=== PATIENT | male | born 1990 | race Two or more races ===

== ENCOUNTER 2024-10-07 13:10 | Emergency (ER) | payer SELFPAY ==
[2024-10-07 13:14] VITALS: BP 165/97; PULSE 115; PULSE 123; RESP 18; RESP 20; TEMP 37.3; O2SAT 97
== END 2024-10-07 13:24 | disposition home or self-care (01) ==
PROVIDERS: Emergency Provider Emergency Medicine
DX: Z53.21 Procedure and treatment not carried out due to patient leaving prior to being seen by health care provider (principal)
CPT/HCPCS: 99281

== ENCOUNTER 2024-10-08 03:54 | Emergency (ER) | payer MEDICAID, SELFPAY ==
[2024-10-08 03:56] VITALS: PULSE 127; RESP 22; O2SAT 94
--- NOTE | 2024-10-08 04:01 | PD.EDOVER ---
ED Overdose RME/HPI General Chief Complaint: Overdose Stated Complaint: OVERDOSE Time Seen by Provider: 10/08/24 04:01 Arrival date/time: 10/08/24 03:54 RME / HPI RME / HPI Narrative: This section includes all my notes and documentations, including HPI, PE, and ED course. Dewey Le MD HPI: 34-year-old male here for evaluation of overdose. Someone called 911 for no responsiveness. He was out on the streets. He was found under a bench. With 3 Narcan treatments, his mental status improved. Patient admits to fentanyl use, no other drug usage. He reports no headache or dizziness. No chest pain or shortness of breath. No other complaints. ROS: All negative except as documented in HPI. Physical Exam: General: Severely lethargic. But he opens his eyes to verbal stimulus. Localizes to pain. And with vigorous stimulus, he follows commands. Eyes: Conjunctivae and lids clear. EOMI. PERRL. ENT: No signs of trauma. Neck: Supple. No carotid bruit. No JVD. Heart: RRR. Lungs: No respiratory distress. Good air movement. No rhonchi, wheezing, rales. Abdomen: Soft and nontender. Skin: Warm and dry. Neuro: Cranial Nerves II-XII grossly intact. No peripheral motor deficits. Musculoskeletal: All major joints and bones are not tender with no limited ROM. My interpretation of the EKG is sinus rhythm with no acute ST?T changes. Blood tests remarkable for troponin 0.154. Treatment included IV fluid and oxygen and ASA and metoprolol. At 6 AM on 10/08/2024, the care of the patient was transferred to Dr Alston. Dewey Le MD Related Data Previous Rx's ?Medication ?Instructions ?Recorded furosemide 20 mg tablet (Lasix) 20 mg PO QAM #7 tabs 04/20/24 Allergies Allergy/AdvReac Type Severity Reaction Status Date / Time No Known Allergies Allergy Verified 10/08/24 04:03 Course Quality Measures none Orders Category Date Time Status EKG (ED ONLY) *Do not use* NOW Care 10/08/24 04:04 Completed Saline [Insert IV] NOW Care 10/08/24 04:02 Active Straight [In and Out Catheter] X1 Care 10/08/24 04:02 Active EKG (ED Only) Stat Exams 10/08/24 04:04 Ordered Acetaminophen Stat Lab 10/08/24 04:05 Completed Alcohol, Blood Medical Stat Lab 10/08/24 04:05 Completed CBC Stat Lab 10/08/24 04:05 Completed CMP [Comprehensive Metabolic Panel] Stat Lab 10/08/24 04:05 Completed Drug Screen,Urine Stat Lab 10/08/24 04:02 Ordered Magnesium Stat Lab 10/08/24 04:05 Completed Salicylate Stat Lab 10/08/24 04:05 Completed Troponin I Stat Lab 10/08/24 04:05 Completed VBG [Venous Blood Gas] Stat Lab 10/08/24 04:05 Completed Albuterol/Ipratr Rt Dede [Duoneb Rt Dede] Med 10/08/24 04:25 Discontinued 3 ml INH X1 ONE Aspirin Chew Med 10/08/24 04:48 Discontinued 324 mg PO X1 ONE MethylPREDNISolone.* [SoluMEDROL Inj] Med 10/08/24 04:25 Discontinued 125 mg IVP X1 ONE Metoprolol Tartrate [Lopressor] Med 10/08/24 04:48 Discontinued 12.5 mg PO X1 ONE Sodium Chloride 0.9% 1000 ml [Ns] 1,000 ml Med 10/08/24 04:03 Discontinued IV 999 mls/hr Vital Signs Vital signs: Vital Signs Temperature 98.3 F 10/08/24 04:03 Pulse Rate 93 10/08/24 04:03 Respiratory Rate 16 10/08/24 04:03 Blood Pressure 128/85 H 10/08/24 04:03 Pulse Oximetry (%) 100 10/08/24 04:03 Oxygen Delivery Method Room Air 10/08/24 04:03 Overdose Patient data External records reviewed:: [facility] previous records and EMS form Clinical information provided by:: patient and EMS Social determinants that could affect healthcare access:: substance use Patient has the following chronic illnesses:: Substance abuse How is presenting disease/condition affected by chronic disease/condition?: exacerbated by Evaluation data The following diagnostics were reviewed and interpreted by me:: lab results, radiology exam(s) and EKG tracing(s) (My interpretation of the EKG: NSR (97 bpm) with no ST-T changes. Dewey Le MD) Lab and/or radiology exams considered but not ordered:: None Interpretation Summary: Overdose and elevated troponin Medications / Prescriptions Medications or Prescriptions considered but not ordered:: None Medication administrations:: Medication Administration History Discontinued Medications Albuterol/Ipratropium (Albuterol/Ipratropium (Duoneb) Rt Dede 3 Ml Nebu) 3 ml INH X1 ONE Stop: 10/08/24 04:26 Last Admin: 10/08/24 04:37 Dose: Not Given Documented By: KG Non-Admin Reason: Discontinued Aspirin (Aspirin 81 Mg Chew) 324 mg PO X1 ONE Stop: 10/08/24 04:49 Sodium Chloride (Ns) 1,000 mls @ 999 mls/hr IV .Q1H1M ONE Stop: 10/08/24 05:03 Last Admin: 10/08/24 04:18 Dose: 999 mls/hr Documented By: KG Methylprednisolone Sodium Succinate (Methylprednisolone Sod Succ 62.5 Mg/Ml 2ml Vial) 125 mg IVP X1 ONE Stop: 10/08/24 04:26 Last Admin: 10/08/24 04:37 Dose: Not Given Documented By: KG Non-Admin Reason: Discontinued Metoprolol Tartrate (Metoprolol Tartrate 25 Mg Tablet) 12.5 mg PO X1 ONE Stop: 10/08/24 04:49 IV fluid and aspirin and metoprolol Consultations Consultation(s) initiated? (list below): No Diagnosis Overdose Differential Diagnosis: cocaine intoxication, suicide attempt by multiple drug overdose, poisoning by opiate or related narcotic, drug overdose, acetaminophen overdose and accidental drug ingestion Most likely diagnosis given after review of the tests above:: Overdose and elevated troponin Admission Indicated Admission indicated?: not indicated Explain why admission is indicated or not indicated:: Complete diagnostics pending Admission Request Was there a request for admission?: No Disposition Plan Disposition Plan: other (specify) (Care of the patient was transferred to next shift physician.) Discharge Plan Prescriptions/Referrals Prescriptions/Med Rec: No Action furosemide [Lasix] 20 mg tablet 20 mg PO QAM Qty: 7 0RF Referrals: No Primary/Family,Physician [Primary Care Provider] - In 1 week Problem List Clinical Impression: Overdose, Elevated troponin Patient/Caregiver Discharge Instructions Print Language: Wolof
[2024-10-08 04:02] VITALS: BMI 36.2
[2024-10-08 04:03] VITALS: BP 128/85; PULSE 93; RESP 16; TEMP 36.8; O2SAT 100
[2024-10-08 04:13] LABS: Base Excess, Venous 1 (-3-3); O2 Saturation, Venous 78 % (96-97); PCO2, Venous 60 mmHg (36-56); PO2, Venous 45 mmHg (15-58); pH, Venous 7.29 (7.33-7.66)
[2024-10-08 04:17] LABS: Basophils # (Auto) 0.1 Thou/mm3 (0.0-0.2); Basophils % (Auto) 1 % (0-2.5); Eosinophils # (Auto) 0.5 Thou/mm3 (0.0-0.5); Eosinophils % (Auto) 7 % (0-10); Hematocrit 34.3 % (41.0-53.0); Hemoglobin 11.1 g/dL (13.5-16.0); Immature Granulocytes % (Auto) 0 % (0-0); Immature Granulocytes Auto 0.01 Thou/mm3 (0.00-0.00); Lymphocytes # (Auto) 3.3 Thou/mm3 (1.0-4.8); Lymphocytes % (Auto) 47 % (10-50); Mean Corpuscular HGB Conc 32.4 g/dl (31.0-37.0); Mean Corpuscular Hemoglobin 26.3 pg (25.0-35.0); Mean Corpuscular Volume 81 fL (80-100); Monocytes # (Auto) 0.9 Thou/mm3 (0.0-0.8); Monocytes % (Auto) 12 % (0-12); Neutrophils # (Auto) 2.4 Thou/mm3 (1.8-7.7); Neutrophils % (Auto) 34 % (37-80); Nucleated Red Blood Cell % 0 /100 WBC (0); Platelet Count 141 Thou/mm3 (140-440); RDW Standard Deviation 49.4 fL (35.1-43.9); Red Blood Count 4.22 Miln/mm3 (4.50-5.90); White Blood Count 7.1 Thou/mm3 (3.8-10.6)
[2024-10-08] MEDS: SODIUM CHLORIDE 0.9% 1000 ML 1,000 ML 999 ML IV ×2 (04:18→10:54)
[2024-10-08 04:43] LABS: Acetaminophen < 2.0 mcg/mL (10.0-20.0); Alanine Aminotransferase 26 U/L (10-49); Albumin/Globulin Ratio 1.6 (1.2-2.2); Alcohol, Blood Medical < 3.0 mg/dL (0-10.0); Alkaline Phosphatase 61 U/L (46-116); Anion Gap 10 (7-16); Aspartate Amino Transferase 26 U/L (0-34); BUN/Creatinine Ratio 20 Ratio (12-20); Bilirubin,Total 0.7 mg/dL (0.3-1.2); Blood Urea Nitrogen 16 mg/dL (9-23); Calcium 8.4 mg/dL (8.3-10.6); Calcium (Corrected) 8.4 mg/dL (8.5-10.1); Carbon Dioxide 25.4 mMol/L (20.0-31.0); Chloride 104 mMol/L (98-107); Creatinine (Component) 0.8 mg/dL (0.6-1.3); Estimated Creatinine Clearance 186.5 mL/min (>60); Globulin 2.5 gm/dL (2.3-3.5); Glucose 85 mg/dL (74-106); Osmolality,Calculated 277 (275-295); Potassium 4.4 mMol/L (3.4-5.1); Salicylate < 3.0 mg/dL; Sodium 139 mMol/L (136-145); Total Protein 6.5 gm/dL (5.7-8.2); eGFR > 60 See Note
[2024-10-08 04:46] LABS: Troponin I 0.154 ng/mL (0.0-0.045)
[2024-10-08 05:33] VITALS: BP 132/86; PULSE 86; RESP 16; O2SAT 100
[2024-10-08] MEDS: ASPIRIN 81 MG CHEW 324 MG PO (05:42)
[2024-10-08 05:43] VITALS: BP 132/86; PULSE 108
[2024-10-08] MEDS: METOPROLOL TARTRATE 25 MG TABLET 12.5 MG PO (05:43)
--- NOTE | 2024-10-08 05:58 | EDNOTE_ITS ---
Emergency Room Addendum <Osiris Reyes - Last Filed: 10/08/24 11:50> Addendum Narrative: 0600: Care assumed from Dr. Le, the previous shift emergency physician. Past medical, surgical, social and family history reviewed. Vitals and home medications reviewed. I will assume the care of the patient at this time. Please refer to the emergency department record for history and examination from initial visit.? Physical exam by me shows patient under no acute distress at this time. <Mann Alston MD - Last Filed: 10/08/24 13:46> Addendum Narrative: 0600: Care assumed from Dr. Le, the previous shift emergency physician. Past medical, surgical, social and family history reviewed. Vitals and home medications reviewed. I will assume the care of the patient at this time. Please refer to the emergency department record for history and examination from initial visit.? Physical exam by me patient is sleeping but arouses appears to be tired but arouses he is breathing fine probably have the best that he has had in a while. He states he is homeless. He admits to using drugs. Does not appear to be under the influence of fentanyl at this time. His troponin was slightly el evated earlier and we will get a repeat 3 hours after the lastone, will reassess when the patient is more alert and the second troponin comes back. Second troponin came back similar to the first still little elevated. Reevaluation shows the patient to still be quite sleepy he does arouse he is a little less slurring his words now and gives me more attention without falling asleep immediately. He does state he is hungry. Because the venous blood gas had some acidosis and the troponin is still little elevated we will get a third troponin a lactic acid and a venous blood gas reevaluate another to 3 hours and I assume what ever drugs are making him sleepy will be more worn off. Also give him another liter of fluid we are waiting. At 1100 hrs. patient is more alert his follow-up venous blood gas shows a pH to be normalized the pH is 7.45 and pCO2 is 36 lactic acid is 0.8. Third troponin is>>>>> still pending at 1108 hrs. Third troponin is unchanged also. Lactic acid is normalized as above patient alert awake eating ambulatory. business services vice president evaluated they feel he is not at risk to himself or this was recreational drug abuse related. I concur. Patient will be discharged she is advised to stop using drugs and follow-up with his doctor.
[2024-10-08 06:20] VITALS: BP 128/89; PULSE 78; RESP 18; O2SAT 96
[2024-10-08 06:46] LABS: Amphetamine/Methamp Scrn,U Positive (Negative); Barbiturate Screen,Urine Negative (Negative); Benzodiazepines Screen,Urine Negative (Negative); Benzoylecgonine Screen, Ur Negative (Negative); Fentanyl Screen,Urine Positive (Negative); Opiate Screen,Urine Negative (Negative); THC Screen,Urine Positive (Negative)
[2024-10-08 07:59] LABS: Troponin I 0.143 ng/mL (0.0-0.045)
--- NOTE | 2024-10-08 08:02 | PC.SS ---
ASW attempted contact with the patient however, the patient appears confused, continues sleeping. Patient continues pending medical clearance/sobriety at this time.
[2024-10-08 10:42] LABS: Base Excess, Venous 2 (-3-3); O2 Saturation, Venous 96 % (96-97); PCO2, Venous 36 mmHg (36-56); PO2, Venous 67 mmHg (15-58); pH, Venous 7.45 (7.33-7.66)
[2024-10-08 10:43] LABS: Lactate (Lactic Acid) 0.8 mMol/L (0.4-2.0)
[2024-10-08 11:10] LABS: Troponin I 0.136 ng/mL (0.0-0.045)
[2024-10-08 13:10] VITALS: BP 126/71; PULSE 60; RESP 15; O2SAT 98
--- NOTE | 2024-10-08 13:13 | PC.SS ---
JERED Parsons met with patient for a mental health evaluation as patient was MALA on an overdose. Patient was informed of this automotive service writer's role and reason for contact. ASW disclosed the limits of confidentiality. Patient appeared alert to self, place and situation. Patient reports he was MALA on an overdose as what he was told. Per patient he used fentanyl substance yesterday and [place] at the park called 911 which is how he got to the ED. Patient reports living at home with mother and brother however also reports being homeless recently. Patient appears to be unkempt and malodorous, however patient is able to engage in assessment and answer questions appropriately. Patient denies that the overdose was intentional and denies wanting to end his life, stating I would never to that . Patient reports being a 10+ year substance user. Choices of substances he reports using is THC, meth, opioids, and recently fentanyl. Patient informs he gets the substances in the streets. Patient's toxicology report is positive for THC, meth and fentanyl. Patient reports being unemployed. Patient reports being able to ambulate and complete ADL's. Patient informs he is not established with primary care. Patient assigned his brother Nagi ([phone]) as his emergency contact, however informs he does not want family to be contacted at this time. Currently, the patient is denying SI and HI. Patient also denying audio and visual hallucinations. Patient denies having a history with mental health or ever being on a psychiatric hold. Patient declines an appointment for mental health services at this time, however is agreeable to receive substance abuse resources and additional community resources. After clinical consultation with care nonprofit director, Mayra Stack LCSW, it was decided that the patient does not meet criteria for a 5150 and can be cleared for discharged with community resources provided.
--- NOTE | 2024-10-08 13:57 | EDNOTE_ITS ---
Emergency Room Addendum Addendum Narrative: Also I forgot to Tahir the previous addendum that this patient prior to my arrival had multiple dose of Narcan due to his overdose of fentanyl. And he has been observed for a protracted period of time in the emerged part make sure there is no rebound. And as of 1350 when he is being discharged he is ambulatory he is eating he is feeling better. Critical care time 75 minutes of observation during my shift and cannot account for how many minutes was spent by Dr. Bojorquez prior to my assuming care. The high probability of sudden, clinically significant deterioration in the patient's condition required the highest level of my preparedness to intervene urgently. The services I provided to this patient were to treat and/or prevent clinically significant deterioration. Services included the following: chart data review, reviewing nursing notes and/or old charts, documentation time, events solutions consultant collaboration regarding findings and treatment options, medication orders and management, direct patient care, vital sign assessments and ordering, interpreting and reviewing diagnostic studies and lab tests. Aggregate critical care time includes only time during which I was engaged in work directly related to the patient's care, as described above, whether at [facility] or elsewhere in the Emergency Department. It did not include time spent performing other reported procedures or the services of residents, students, nurses or physician assistants.
== END 2024-10-08 15:09 | disposition home or self-care (01) ==
PROVIDERS: Emergency Medicine; Emergency Provider Emergency Medicine
DX: T40.411A Poisoning by fentanyl or fentanyl analogs, accidental (unintentional), initial encounter (principal); R79.89 Other specified abnormal findings of blood chemistry
CPT/HCPCS: 36415; 80053; 80307; 80320; 80329; 82803; 83605; 83735; 84484; 85025; 90839; 93005; 96127; 96360; 99284; J7030; A9270; G0480

== ENCOUNTER 2025-01-02 12:57 | Emergency (ER) | payer MEDICAID, SELFPAY ==
[2025-01-02 13:14] VITALS: BP 122/73; PULSE 85; RESP 20; TEMP 37.2; O2SAT 97; BMI 27.2
--- NOTE | 2025-01-02 13:17 | XR_ITS ---
Examination: Hand, right 3 views Technique: Hand AP, oblique, lateral 3 views Date and time of exam: January 02, 2025 1322 hours INDICATIONS: Injury to the hand today with first digit pain. FINDINGS: No acute fracture No dislocation No foreign body IMPRESSION: No acute fracture
[2025-01-02] MEDS: IBUPROFEN TAB 400 MG TABLET 800 MG PO (14:58)
--- NOTE | 2025-01-02 15:46 | PD.EDHAND ---
Upper Extremity Injury RME/HPI General Chief Complaint: Hand/Wrist Problems Stated Complaint: right thumb deformed, patient denies injury Time Seen by Provider: 01/02/25 13:01 Arrival date/time: 01/02/25 12:57 34-year-old male presents to the emergency department today for complaints of deformity to the right thumb patient reports that he dislocated his right thumb this morning Limitations: no limitations Related Data Previous Rx's ?Medication ?Instructions ?Recorded furosemide 20 mg tablet (Lasix) 20 mg PO QAM #7 tabs 04/20/24 ibuprofen 800 mg tablet 800 mg PO TID PRN pain #30 tabs 01/02/25 Allergies Allergy/AdvReac Type Severity Reaction Status Date / Time No Known Allergies Allergy Verified 01/02/25 13:06 Review of Systems Review of Systems Systems Reviewed: All systems reviewed, normal except as documented Constitutional Constitutional: Reports system reviewed and no additional complaints, except as documented, Denies fever(s) and Denies headache(s) Eyes Eyes: Reports system reviewed and no additional complaints, except as documented and Denies blurry vision ENT Ears, Nose, Mouth, and Throat: Reports system reviewed and no additional complaints, except as documented, Denies headache(s), Denies nasal congestion and Denies nasal discharge Cardiovascular Cardiovascular: Reports system reviewed and no additional complaints, except as documented, Denies chest pain and Denies dyspnea Respiratory Respiratory: Reports system reviewed and no additional complaints, except as documented, Denies chest congestion, Denies cough and Denies dyspnea Gastrointestinal Gastrointestinal: Reports system reviewed and no additional complaints, except as documented and Denies abdominal pain Musculoskeletal Musculoskeletal: Reports system reviewed and no additional complaints, except as documented, Reports arthralgias, Reports deformity and Reports joint swelling Integumentary/Breasts Skin/Breast: Reports system reviewed and no additional complaints, except as documented and Denies rash Neurologic Neurologic: Reports system reviewed and no additional complaints, except as documented, Reports as per HPI and Denies headache(s) Past Medical History Past Medical History NEUROLOGIC: Negative Neurological Disorders, Cerebrovascular Accident, Transient Ischemic Attacks (TIA), Dementia, Alzheimer's Disease, Parkinson's Disease, Brain Tumor, Meningitis, Seizures, Epilepsy, Multiple Sclerosis, Cerebral Palsy, Amyotrophic Lateral Sclerosis (ALS/Destinee Gehrig's), Guillain-Loving Syndrome, Spina Bifida, Paralysis, Peripheral Neuropathy, Collier's Palsy, Subdural Hematoma, Migraine, Head Trauma, Spinal Cord Injury or Traumatic Brain Injury CARDIAC: Negative Cardiac Disorders, Myocardial Infarction, Cardiac Arrhythmia, Atrial Fibrillation, Angina, Heart Murmur, Coronary Artery Disease, Atherosclerotic Heart Disease, Peripheral Vascular Disease, Hypercholesterolemia, Aneurysm, Congestive Heart Failure, Congenital Heart Disease, Valvular Heart Disease, Rheumatic Fever, Cardiomyopathy, Edema, Pericarditis, Cellulitis, Deep Vein Thrombosis, Hypertension, Hypotension or Varicose Veins RESPIRATORY: Positive Asthma and Bronchitis; Negative Chronic Obstructive Pulmonary Disease (COPD), Emphysema, Pneumonia, Pulmonary Fibrosis, Cystic Fibrosis, Tuberculosis, Pulmonary Embolism, Pulmonary Edema or Sleep Apnea GASTROINTESTINAL: Positive Gastrointestinal Disorders and Pancreatitis; Negative Hepatitis, Cirrhosis, Celiac Disease, Gall Bladder Disease, Gastrointestinal Bleed, Esophageal Varices, Orozco's Esophagus, Colitis, Ulcerative Colitis, Diverticulitis, Diverticulosis, Ulcer, Colorectal Cancer, Irritable Bowel, Crohn's Disease, Obstructive Bowel, Hiatal Hernia, Hemorrhoids, Gastroesophageal Reflux Disease or Obesity GENITOURINARY: Negative Genitourinary Disorders, Renal Disease, Kidney Stones, Polycystic Kidney Disease, Neurogenic Bladder, Inguinal Hernia, Dialysis, Prostate Cancer or Benign Prostatic Hyperplasia REPRODUCTIVE: Negative Breast Cancer, Fibroids, Genital Herpes, Gonorrhea, Syphilis or Testicular Cancer MUSCULOSKELETAL: Positive Fractures (BROKEN FINGER); Negative Musculoskeletal Disorders, Muscular Dystrophy, Myasthenia Gravis, Marfan's Syndrome, Bone Cancer, Arthritis, Rheumatoid Arthritis, Osteoporosis, Degenerative Disk Disease, Gout, Scoliosis, Carpal Tunnel Syndrome, Fibromyalgia, Degenerative Joint Disease, Osteomyelitis or Poliovirus ENT: Positive Cataracts; Negative Glaucoma, Blind, Retinal Detachment, Macular Degeneration, Ear Infection, Deafness, Head Trauma or Eye Prosthesis ENDOCRINE: Negative Endocrine Disorders, Diabetes Mellitus Type 1, Diabetes Mellitus Type 2, Hypoglycemia, Ty[place]ham's Syndrome, [place]'s Disease, Hyperthyroidism, Hypothyroidism, Parathyroid Disease, Pituitary Disease, Systemic Lupus Erythematosus, Syndrome of Inappropriate Antidiuretic Hormone (SIADH), Adrenal Disease or Graves' Disease HEMATOLOGIC: Negative Blood Disorders, Anemia, Leukemia, Hemophilia, Thalassemia, Sickle Cell Disease or Clotting Problems PSYCHO/SOCIAL: Positive Recreational Drug Use and Behavior Problems (YOUNGER ATTEMPTED SUICIDE WITH DRUG USE); Negative Psychiatric Problems, Schizophrenia, Bipolar Disorder, Depression, Anxiety, Self-Mutilation, Attention Deficit Disorder, Attention Deficit Hyperactivity Disorder, Depression, Post Traumatic Stress Disorder or Eating Disorder OTHER HISTORY: Negative Hospitalization, Autoimmune Disease, Down Syndrome, Autism, Developmental Delay, Shingles, Falls, Blood Transfusions, Blood Transfusion Reaction, Anesthesia Reactions, Organ Transplant, Chemotherapy, Radiation Therapy, Hyperbaric Therapy, MRSA, VRSA, Vancomycin-Resistant Enterococci, Human Immunodeficiency Virus (HIV), Chicken Pox, Measles, Mumps, Rubella (Serbian Measles), Pertussis, Clostridium Difficile, Cancer, Breast Cancer, Cervical Cancer, Colorectal Cancer, Lung Cancer, Ovarian Cancer, Prostate Cancer or Testicular Cancer Family History FAMILY HISTORY: Positive Family Respiratory Disorders (ASTHMA) and Family Cancer (FATHER OF PROSTATE CANCER); Negative Family Psychiatric Problems, Family Cardiac Disorders, Family Gastrointestinal Problems, Family Surgery or Family Anesthesia Reaction Surgical History SURGICAL: Negative Cardiac Surgery, Open Heart Surgery, Coronary Artery Bypass Graft, Valve Replacement, Vascular Surgery, Coronary Stent, Cardiac Catheterization, Pacemaker, Angiogram, Auto Implanted Cardiovert Defib, Carotid Endarterectomy, Endocrine Surgery, Thyroidectomy, Ear Surgery, Tympanostomy Tube, Eye Surgery, Nose Surgery, Oral Surgery, Tonsillectomy, Adenoidectomy, Cochlear Implant, Corneal Transplant, Throat Surgery, Abdominal Surgery, Tracheostomy, Gastric Bypass Surgery, Gastrostomy, Bowel Surgery, Nephrectomy, Transurethral Resection, Joint Replacement, Amputation, Open Reduction Internal Fixation, Arthroscopy, Neurologic Surgery, Brain Shunt, Mastectomy, Lumpectomy, Hysterectomy, Tubal Ligation, Section, Vasectomy or Organ Transplant Social History SMOKING STATUS: Current every day smoker SECOND HAND EXPOSURE: Yes ED Exam General Limitations: Present no limitations General appearance: Present alert and in no apparent distress Head Head exam: Present atraumatic Eye Eye exam: Present normal appearance, PERRL and EOMI ENT ENT exam: Present normal exam, normal oropharynx and mucous membranes moist Neck Neck exam: Present normal inspection, full ROM and trachea midline Chest Chest inspection: Present normal inspection and symmetric chest wall rise Respiratory Respiratory exam: Present normal lung sounds bilaterally Cardiovascular Cardiovascular exam: Present regular rate, normal rhythm and normal heart sounds Abdominal Exam Abdominal exam: Present soft and normal bowel sounds Extremities Exam Extremities exam: Present tenderness (Deformity right thumb) and normal capillary refill Back Exam Back exam: Present normal inspection and full ROM Neurological Exam Neurological exam: Present alert, oriented X3 and CN II-XII intact Psychiatric Psychiatric exam: Present normal affect and normal mood Skin Skin exam: Present warm, dry, intact and normal color Course Quality Measures none Orders Category Date Time Status XR hand comp RT min 3V Stat Exams 01/02/25 13:17 Completed Ibuprofen Tab [Motrin Tab] Med 01/02/25 13:17 Discontinued 800 mg PO X1 ONE Vital Signs Vital signs: Vital Signs Temperature 98.9 F 01/02/25 13:14 Pulse Rate 85 01/02/25 13:14 Respiratory Rate 20 01/02/25 13:14 Blood Pressure 122/73 01/02/25 13:14 Pulse Oximetry (%) 97 01/02/25 13:14 Oxygen Delivery Method Room Air 01/02/25 13:14 O2 saturation 97% room air within normal limits Procedures -ED Orthopedic Joint Reduction Joint #1: Time Out Performed: Yes Side: Right Joint Reduction Location: finger Shoulder Technique Used (if applicable): traction/counter-traction and scapula manipulation Post-reduction neuro exam: intact Post-reduction vascular: intact Post Reduction X-Ray Obtained: Yes Post Reduction X-Ray Results: reduced Splint Applied: Yes Patient Tolerated Procedure: well Extremity Injury MDM Narrative MDM Narrative:: 34-year-old male presents to the emergency department today for complaints of deformity to the right thumb patient reports that he dislocated his right thumb this morning On exam patient has deformity of the right thumb I reduced the finger without difficulty patient reports complete relief at this time X-ray of the right hand obtained no acute fracture or dislocation noted after the reduction Patient discharged home with ibuprofen Patient discharged home in no distress to follow-up with primary care doctor in the next 24 to 48 hours and for any worsening symptoms to return to the ER immediately Patient data External records reviewed:: [facility] previous records Clinical information provided by:: patient Social determinants that could affect healthcare access:: housing Patient has the following chronic illnesses:: See history How is presenting disease/condition affected by chronic disease/condition?: uneffected by Evaluation data The following diagnostics were reviewed and interpreted by me:: radiology exam(s) Lab and/or radiology exams considered but not ordered:: Radiology obtain Interpretation Summary: Reviewed by me Medications / Prescriptions Medications or Prescriptions considered but not ordered:: Given Medication administrations:: Medication Administration History Discontinued Medications Ibuprofen (Ibuprofen Tab 400 Mg Tablet) 800 mg PO X1 ONE Stop: 01/02/25 13:18 Last Admin: 01/02/25 14:58 Dose: 800 mg Documented By: KM Given Consultations Consultation(s) initiated? (list below): No Diagnosis Upper Extremity Injury Differential Diagnosis: finger sprain, dislocation of finger and fracture of hand Most likely diagnosis given after review of the tests above:: Dislocation finger Admission Indicated Admission indicated?: not indicated Admission Request Was there a request for admission?: No Disposition Plan Disposition Plan: Discharge Discharge Attestation Discharge Attestation: The patient and all family members were given an opportunity to ask questions and understood the discharge instructions. Discharge instructions specifically effects, indications for sooner follow up or return to the emergency department, and the expected course of current diagnosis. Patient condition: Stable Discharge Plan Plan Patient Disposition: HOME (Self Care) Discharge Disposition comment: Stable Prescriptions/Referrals Prescriptions/Med Rec: New ibuprofen 800 mg tablet 800 mg PO TID PRN (Reason: pain) Qty: 30 0RF No Action furosemide [Lasix] 20 mg tablet 20 mg PO QAM Qty: 7 0RF Referrals: No Primary/Family,Physician [Primary Care Provider] - In 1 week Problem List Clinical Impression: Closed dislocation of finger of right hand Patient/Caregiver Discharge Instructions Education Materials: ED Finger Dislocation Additional Instructions: Please follow up with your primary care doctor in the next 24-48hrs for any worsening symptoms return here immediately Print Language: Turkish Stand Alone Forms: Delphine Award Info., Patient Portal Info Letter PA/JAYAHSREE Supervising Physician LEANDRO/JAYASHREE Supervising Physician:
== END 2025-01-02 15:19 | disposition home or self-care (01) ==
PROVIDERS: Emergency Provider Emergency Medicine
DX: S63.104A Unspecified dislocation of right thumb, initial encounter (principal); X58.XXXA Exposure to other specified factors, initial encounter
CPT/HCPCS: 26770; 73130; 99283; A9270

== ENCOUNTER 2025-03-08 08:50 | Emergency (ER) | payer MEDICAID, SELFPAY ==
[2025-03-08 08:56] VITALS: BP 146/93; PULSE 111; RESP 18; TEMP 36.8; O2SAT 99
[2025-03-08 08:57] VITALS: BMI 24.4
--- NOTE | 2025-03-08 09:00 | PD.EDMEDCL ---
ED Medical Clearance RME/HPI General Chief complaint: Medical Clearance Stated complaint: SENIOR CARE CHECK Time Seen by Provider: 03/08/25 08:52 Arrival date/time: 03/08/25 08:50 Limitations: no limitations RME / HPI RME / HPI Narrative: DR. REECE PHELPS ED EVALUATION: 35-year-old male with past medical history of pancreatitis and polysubstance use presents to the Emergency Department after being picked up by police for intoxication in a parking lot of a donut shop. Patient reports feeling frustrated but otherwise fine , with no physical complaints. He is asymptomatic at this time. Vitals notable for tachycardia at 111 bpm, otherwise within normal limits. Patient was handcuffed upon arrival but was able to stand independently. He appears under the influence of methamphetamine but remains oriented. Related Information Previous Rx's ?Medication ?Instructions ?Recorded furosemide 20 mg tablet (Lasix) 20 mg PO QAM #7 tabs 04/20/24 ibuprofen 800 mg tablet 800 mg PO TID PRN pain #30 tabs 01/02/25 Allergies Allergy/AdvReac Type Severity Reaction Status Date / Time No Known Allergies Allergy Verified 01/02/25 13:06 Review of Systems Review of Systems Systems Reviewed: All systems reviewed, normal except as documented Past Medical History Past Medical History RESPIRATORY: Positive Asthma and Bronchitis GASTROINTESTINAL: Positive Gastrointestinal Disorders and Pancreatitis MUSCULOSKELETAL: Positive Fractures (BROKEN FINGER) ENT: Positive Cataracts PSYCHO/SOCIAL: Positive Recreational Drug Use and Behavior Problems (YOUNGER ATTEMPTED SUICIDE WITH DRUG USE) Family History FAMILY HISTORY: Positive Family Respiratory Disorders (ASTHMA) and Family Cancer (FATHER OF PROSTATE CANCER) Social History SMOKING STATUS: Current every day smoker SECOND HAND EXPOSURE: Yes ED Exam General Limitations: Present no limitations General appearance: Present alert, in no apparent distress and other (Patient was handcuffed upon arrival but was able to stand independently. He appears under the influence of methamphetamine but remains oriented.) Head Head exam: Present atraumatic, normocephalic and normal inspection Eye Eye exam: Present normal appearance, PERRL and EOMI ENT ENT exam: Present normal exam, normal oropharynx and mucous membranes moist Neck Neck exam: Present normal inspection, full ROM and trachea midline Chest Chest inspection: Present normal inspection and symmetric chest wall rise Respiratory Respiratory exam: Present normal lung sounds bilaterally Cardiovascular Cardiovascular exam: Present regular rate, normal rhythm and normal heart sounds Abdominal Exam Abdominal exam: Present soft and normal bowel sounds Extremities Exam Extremities exam: Present normal inspection and full ROM (besides hands cuffed to the back) Back Exam Back exam: Present normal inspection and full ROM Neurological Exam Neurological exam: Present alert and other (Patient was handcuffed upon arrival but was able to stand independently. He appears under the influence of methamphetamine but remains oriented. Somewhat pressured speech.) Psychiatric Psychiatric exam: Present normal affect and normal mood Skin Skin exam: Present warm, dry, intact and normal color Course Quality Measures none Vital Signs Vital signs: Vital Signs Temperature 98.2 F 03/08/25 08:56 Pulse Rate 111 H 03/08/25 08:56 Respiratory Rate 18 03/08/25 08:56 Blood Pressure 146/93 H 03/08/25 08:56 Pulse Oximetry (%) 99 03/08/25 08:56 Oxygen Delivery Method Room Air 03/08/25 08:56 Medical Clearance MDM Narrative MDM Narrative:: IOsiris am scribing for and in the presence of Dr. Pineda. Patient data External records reviewed:: [facility] previous records Clinical information provided by:: patient and law enforcement Social determinants that could affect healthcare access:: substance use Patient has the following chronic illnesses:: pancreatitis and polysubstance use How is presenting disease/condition affected by chronic disease/condition?: exacerbated by Evaluation data The following diagnostics were reviewed and interpreted by me:: other (specify) (none no complaints) Lab and/or radiology exams considered but not ordered:: none Interpretation Summary: n/a Medications / Prescriptions Medications or Prescriptions considered but not ordered:: none Medication administrations:: see above if any Consultations Consultation(s) initiated? (list below): No Diagnosis Medical Clearance Differential Diagnosis: other (Methamphetamine intoxication, alcohol or polysubstance intoxication, and behavioral disturbance related to substance use.) Most likely diagnosis given after review of the tests above:: Methamphetamine abuse Admission Indicated Admission indicated?: not indicated Admission Request Was there a request for admission?: No Disposition Plan Disposition Plan: Discharge (to residential) Discharge Attestation Discharge Attestation: The patient and all family members were given an opportunity to ask questions and understood the discharge instructions. Discharge instructions specifically effects, indications for sooner follow up or return to the emergency department, and the expected course of current diagnosis. Patient condition: Stable Discharge Plan Plan Patient Disposition: Prison/Court/Law Prescriptions/Referrals Prescriptions/Med Rec: No Action furosemide [Lasix] 20 mg tablet 20 mg PO QAM Qty: 7 0RF ibuprofen 800 mg tablet 800 mg PO TID PRN (Reason: pain) Qty: 30 0RF Referrals: [facility] [Provider Group] - In 1 week No Primary/Family,Physician [Primary Care Provider] - In 1 week Problem List Clinical Impression: Methamphetamine abuse Patient/Caregiver Discharge Instructions Education Materials: Signs of Addiction: Social Use, Addiction: Getting Help, Treating Drug Abuse and Addiction, ED Drug Abuse Additional Instructions: Please return to the emergency department if you develop any medical complaints or if you have any other problems and we will help you. Otherwise you should follow-up with your primary care doctor or in the [facility] within the next several days Print Language: Japanese
== END 2025-03-08 09:10 ==
PROVIDERS: Emergency Provider Emergency Medicine
DX: Z02.89 Encounter for other administrative examinations (principal); F15.10 Other stimulant abuse, uncomplicated
CPT/HCPCS: 99281